=== PATIENT | female | born 1990 | race American Indian/Alaskan Native ===

== ENCOUNTER 2022-05-14 03:33 | Emergency (ER) | payer SELFPAY ==
[2022-05-14 04:03] LABS: Color,Urine Yellow (Yellow)
[2022-05-14 04:04] LABS: Bilirubin,Urine Negative (Negative); Blood,Urine Large (Negative); Protein,Urine 300 mg/dL mg/dL (Negative); Urobilinogen,Urine 0.2 mg/dL (<2.0)
[2022-05-14 04:05] LABS: Bacteria,Urine 4+ /HPF (Negative); Mucus,Urine FEW /HPF
[2022-05-14] MEDS ORDERED: LIDOCAINE-MPF (1%) 10 MG/1 ML VIAL 5 ML INFILTRATI ONE (10:09)
[2022-05-14] MEDS ORDERED: PHENAZOPYRIDINE 200 MG TAB PO ONE (10:09)
--- NOTE | 2022-05-14 10:28 | Emergency Department Report ---
ED Female HPI - General Chief complaint: Urogenital-Female Stated complaint: VAGINAL IRRITATION Time Seen by Provider: 05/14/22 09:38 Source: patient Mode of arrival: Ambulatory Limitations: No Limitations - History of Present Illness Initial comments: 31-year-old black female with no past medical history presents to the emergency department for evaluation of few day history of urinary urgency, dysuria, and lower abdominal pain. She denies fever, nausea, vomiting, and vaginal discharge. She states that she has had intermittent pain that is sharp, worse with urination, and 8 out of 10 at its worst. MD Complaint: dysuria -: Gradual, days(s) (6-7) Location: suprapubic, LLQ Radiation: non-radiating Severity: moderate Severity scale (0 -10): 8 Quality: aching Consistency: intermittent Worsens with: urination Are you Now?: No Associated Symptoms: abdominal pain, dysuria. denies: vaginal discharge, vaginal bleeding, nausea/vomiting, fever/chills, headaches, loss of appetite, hematuria, rash, seizure, shortness of breath, syncope, weakness - Related Data Sexually active: Yes Previous Rx's Medication Instructions Recorded Last Taken Type Phenazopyridine [Pyridium] 200 mg PO BID 3 Days #6 tab 05/14/22 Unknown Rx Sulfamethoxazole/Trimethoprim 1 each PO BID 5 Days #10 tab 05/14/22 Unknown Rx [Bactrim DS TAB] Allergies Allergy/AdvReac Type Severity Reaction Status Date / Time No Known Allergies Allergy Verified 05/14/22 03:43 ED Review of Systems ROS: Stated complaint: VAGINAL IRRITATION Other details as noted in HPI Comment: All other systems reviewed and negative Constitutional: denies: chills, fever Respiratory: denies: shortness of breath Cardiovascular: denies: chest pain, palpitations Gastrointestinal: abdominal pain. denies: nausea, vomiting Musculoskeletal: back pain Neurological: denies: headache, weakness ED Past Medical Hx - Medications Home Medications: Home Medications Medication Instructions Recorded Confirmed Last Taken Type Phenazopyridine [Pyridium] 200 mg PO BID 3 Days #6 tab 05/14/22 Unknown Rx Sulfamethoxazole/Trimethoprim 1 each PO BID 5 Days #10 tab 05/14/22 Unknown Rx [Bactrim DS TAB] ED Physical Exam - General Limitations: No Limitations General appearance: alert, in no apparent distress - Head Head exam: Present: atraumatic, normocephalic - Eye Eye exam: Present: normal appearance. Absent: conjunctival injection, periorbital swelling, periorbital tenderness - Neck Neck exam: Present: normal inspection. Absent: tenderness, lymphadenopathy - Respiratory Respiratory exam: Present: normal lung sounds bilaterally. Absent: respiratory distress, wheezes, rales, rhonchi, stridor, chest wall tenderness - Cardiovascular Cardiovascular Exam: Present: regular rate, normal heart sounds - GI/Abdominal GI/Abdominal exam: Present: soft, tenderness (Bilateral lower), normal bowel sounds. Absent: distended, guarding, rebound, rigid - Extremities Exam Extremities exam: Present: normal inspection. Absent: normal capillary refill - Back Exam Back exam: Present: normal inspection. Absent: CVA tenderness (R), CVA tenderness (L) - Neurological Exam Neurological exam: Present: alert, oriented X3 - Psychiatric Psychiatric exam: Present: normal affect, normal mood - Skin Skin exam: Present: warm, dry, intact, normal color ED Course Vital Signs 05/14/22 03:38 Temperature 98.5 F Pulse Rate 86 Respiratory 18 Rate Blood Pressure 121/83 O2 Sat by Pulse 99 Oximetry ED Medical Decision Making - Medical Decision Making 31-year-old black female with no past medical history presents to the emergency department for evaluation of few day history of urinary urgency, dysuria, and lower abdominal pain. She denies fever, nausea, vomiting, and vaginal discharge. She states that she has had intermittent pain that is sharp, worse with urination, and 8 out of 10 at its worst. Urine positive for urinary tract infection. Patient given one-time dose of Rocephin IM 1 g in the emergency department and will be discharged home with 5- day course of Bactrim along with 3 days of Pyridium. She is advised to increase intake of noncaffeinated fluids, take medications as directed, and follow-up with her primary care provider if no improvement or worsening symptoms. She is advised to return to the emergency department as needed. She verbalizes understanding of and agreement with plan of care. Critical care attestation.: If time is entered above; I have spent that time in minutes in the direct care of this critically ill patient, excluding procedure time. ED Disposition Clinical Impression: UTI (urinary tract infection) Qualifiers: Urinary tract infection type: acute cystitis Hematuria presence: with hematuria Qualified Code(s): N30.01 - Acute cystitis with hematuria Disposition: HOME / SELF CARE / HOMELESS Is pt being admited?: No Does the pt Need Aspirin: No Condition: Stable Instructions: Antibiotic Medicine, Adult, [id number], Urinary Tract Infecti on, Adult, [id number] Additional Instructions: Take medications as directed. Increase your intake of noncaffeinated fluids. Follow-up with your primary care provider if no improvement or worsening symptoms. Return to the emergency department as needed. Prescriptions: Sulfamethoxazole/Trimethoprim [Bactrim DS TAB] 1 each PO BID 5 Days #10 tab Phenazopyridine [Pyridium] 200 mg PO BID 3 Days #6 tab Referrals: OPAL SHEPHERD MD [Staff Physician] - 3-5 Days Forms: Work/School Release Form(ED) Time of Disposition: 10:29
[2022-05-14 10:49] VITALS: BP 180/84
== END 2022-05-14 13:31 | disposition home or self-care (01) ==
LOC: ED 03:33
DX: N39.0 Urinary tract infection, site not specified (principal)
CPT/HCPCS: 81001; 96372; 99283; J0696; J3490